=== PATIENT | male | born 1960 | race Caucasian/White ===

== ENCOUNTER 2023-03-28 12:25 | Day surgery (SDC) | payer OTHER ==
[~2023-03-28] VITALS: Ht 182.9 cm; Wt 124.0 kg
[~2023-03-28 12:25] MED LIST: ALLOPURINOL100 MG PO; CRESTOR10 MG PO
[2023-03-28 12:48] VITALS: BP 139/63
--- NOTE | 2023-03-28 14:23 | NUR ---
03/28/23 1423 Rufina Thompson 1420-PATIENT ARRIVED TO PACU ON 3L NC RR EVEN PLACED ON 2L. PATIENT LAYING LEFT LATERAL AWAKE REMAINS VERY DROWSY. ABDOMEN SOFT ENCOURAGED TO PASS GAS. IVF INFUSING. PATIENT DOZES TO SLEEP.
[2023-03-28 15:11] VITALS: BP 128/79
--- NOTE | 2023-03-30 11:21 | OR ---
[facility] [address], [place] [address] Signed DATE OF OPERATION: 03/28/2023 SURGEON: Corine Guerrero MD PREOPERATIVE DIAGNOSES: 1. Dysphagia without associated reflux symptoms. 2. Colon screening. POSTOPERATIVE DIAGNOSES: 1. 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 2. Large polyp (2 cm) mid rectum and smaller flat sessile polyp, of rectum. PROCEDURES: 1. Esophagogastroduodenoscopy with biopsy. 2. Total colonoscopy to cecum with hot snare polypectomy x1 and hot morcellation polypectomy x1. ANESTHESIA: Intravenous sedation; fentanyl 200 mcg and Versed 10 mg, total. INDICATION: This 62-year-old white man is a patient of Dr. Marc Forrester. He is referred for screening colonoscopy as well as for issues related to dysphagia. He has no actual heartburn complaints. His mother is well known to me from the past, who has had rectal prolapse problems and other issues. He has no known family history of colon cancer. He is admitted to undergo upper endoscopy and screening colonoscopy. He understands the risk of bleeding, infection, and perforation. FINDINGS: Upper endoscopy demonstrated no evidence of De Leon epithelium or actual stricture, though he did have a corrugated (feline) mid esophagus suggestive though not diagnostic of eosinophilic esophagitis. There is a small hiatal hernia. The stomach and duodenum showed mild inflammation as well. On colonoscopy, he had a well prepped colon. Complete colonoscopy was undertaken of the cecum. There was a relatively large rectal polyp at least 2 cm in size, which was excised with hot snare polypectomy technique and another smaller nearby polyp excised with hot morcellation technique. DESCRIPTION OF PROCEDURE: Electronically Signed By: CORINE GUERRERO MD 03/30/23 1121 PATIENT NAME: VARUN OLEARY OPERATIVE REPORT DATE OF : 62 REPORT #: [id number] PHYSICIAN: CORINE GUERRERO MD PCP: MARC FORRESTER MD REPORT IS CONFIDENTIAL AND NOT TO BE RELEASED WITHOUT AUTHORIZATION [facility] [address], [place] [address] Signed The patient was brought to the endoscopy suite and placed in the lateral decubitus position after undergoing topical lidocaine hypopharyngeal anesthesia. A bite block was placed. An Olympus video upper endoscope was passed into the hypopharynx after satisfactory intravenous sedation was induced to a point of slurred speech and nystagmus. The scope was advanced to the esophagus, throughout its length it initially appeared normal. The distal esophagus had no stricture, neoplasm, or De Leon's epithelium. Scope was advanced to the stomach, which was insufflated with air. Rugal folds were normal. The antrum had mild inflammatory change. Pylorus was normal. Scope was passed through into the duodenum, which had mild inflammatory change of the bulbar portion. Biopsies were taken of the 2nd portion and bulbar portion. The scope was withdrawn to the stomach and biopsies taken for both CONNER and pathologic testing. Retroflexed views undertaken showing a somewhat poor flap valve, but no sign of large hiatal hernia. Scope was withdrawn to the distal esophagus, which was normal. Biopsies were obtained nevertheless given his underlying symptoms. Further withdrawal to the midesophagus showed findings highly suggestive of eosinophilic esophagitis with a corrugated appearance consistent with feline esophagus. There was also a small flat mucosal polypoid lesion which was additionally biopsied. Biopsies were taken of the mid esophagus as well. The scope was withdrawn and plans made for colonoscopy. Additional sedation was given. Digital rectal examination was undertaken showing a symmetric and normal for age sized prostate. The Olympus video colonoscope was passed in the rectum and manipulated throughout the colon ultimately intubating the cecum itself. The ileocecal valve and appendiceal orifice were normal. Scope was withdrawn from that point. Examination showed no sign of problem until the rectum where in the mid to lower portion a rather large pedunculated polyp was noted. It measures at least 2 cm. Using hot snare polypectomy technique, it was excised completely without bleeding or other problem and was passed for permanent pathology. An additional small polyp was noted near by which was excised with hot morcellation technique. The scope was removed and the patient was taken to the recovery room in good condition. CONCLUDING DIAGNOSES: 1. Polyps x2. 2. Possible eosinophilic esophagitis. PLAN: We will initiate Prilosec 20 mg p.o. daily. If biopsies confirmed eosinophilic esophagitis, then we will add fluticasone two puffs spray b.i.d. three weeks with one week drug holiday. He will return to see me in approximately six weeks, sooner if there are problems. Electronically Signed By: CORINE GUERRERO MD 03/30/23 1121 PATIENT NAME: VARUN OLEARY OPERATIVE REPORT DATE OF : 62 REPORT #: [id number] PHYSICIAN: CORINE GUERRERO MD PCP: MARC FORRESTER MD REPORT IS CONFIDENTIAL AND NOT TO BE RELEASED WITHOUT AUTHORIZATION [address] [address] Signed Corine Guerrero MD JM/MODL /[id number] cc: Marc Forrester MD Copies: MARC FORRESTER DMD ~ Electronically Signed By: CORINE GUERRERO MD 03/30/23 1121 PATIENT NAME: VARUN OLEARY OPERATIVE REPORT DATE OF : 62 REPORT #: [id number] PHYSICIAN: CORINE GUERRERO MD PCP: MARC FORRESTER MD REPORT IS CONFIDENTIAL AND NOT TO BE RELEASED WITHOUT AUTHORIZATION
--- NOTE | 2023-04-03 13:04 | PATH ---
[facility] [address] [facility] [place], [place] [address] Signed SPECIMEN(S): A DUODENAL BIOPSY SPECIMEN(S): B DUODENAL BULB BIOPSY SPECIMEN(S): C ANTRUM/PYLORUS BIOPSY SPECIMEN(S): D DISTAL LOWER ESOPHAGEAL BIOPSY SPECIMEN(S): E MID ESOPHAGEAL POLYP SPECIMEN(S): F MID ESOPHAGEAL BIOPSY SPECIMEN(S): G RECTAL POLYP SPECIMEN(S): H ADDITIONAL RECTAL POLYP SPECIMEN SOURCE: A. DUODENAL BIOPSY B. DUODENAL BULB BIOPSY C. ANTRUM/PYLORUS BIOPSY D. DISTAL LOWER ESOPHAGEAL BIOPSY E. MID ESOPHAGEAL POLYP F. MID ESOPHAGEAL BIOPSY G. RECTAL POLYP H. ADDITIONAL RECTAL POLYP CLINICAL HISTORY: History of dysphagia; colon screening. Postop: Possible eosinophilic esophagitis. FINAL PATHOLOGIC DIAGNOSIS: A. Duodenal biopsy: - Benign duodenal mucosa, negative for specific diagnostic abnormality. B. Duodenal bulb biopsy: - Benign duodenal mucosa with focal epithelial erosion. - Negative for increased epithelial lymphocytes or other specific abnormality. C. Antrum / pylorus biopsy: - Benign gastric-type mucosa with focal slight chronic inflammation. - Negative for evidence of Helicobacter organisms on routine HE-stained sections. D. Distal lower esophageal biopsy: - Benign esophageal mucosa with increased epithelial eosinophils (up to approximately 22 per HPF). - Negative for gastric glandular mucosa. - See comment. E. Mid esophageal polyp: - Polypoid squamous epithelium with reactive features and increased epithelial eosinophils (up to approximately 30 per HPF) PATIENT NAME: VARUN OLEARY PATHOLOGY DATE OF : 62 REPORT #: [id number] PHYSICIAN: [facility] PCP: MARC FORRESTER MD REPORT IS CONFIDENTIAL AND NOT TO BE RELEASED WITHOUT AUTHORIZATION [facility] [address] [place], [place] [address] Signed - See comment. F. Mid esophageal biopsy: - Benign esophageal epithelium with increased epithelial eosinophils (measuring up to approximately 20 per HPF). - See comment. G. Rectal polyp: - Tubulovillous adenoma with a small superficial focus approaching High Grade Dysplasia. H. Additional rectal polyp: - Benign colonic mucosa, negative for adenoma or dysplasia. COMMENT: The increased epithelial eosinophils cells at the gastroesophageal junction can be seen with eosinophilic esophagitis and reflux associated changes. Clinical correlation requested. The increased epithelial eosinophils (specimens E and F) are consistent with eosinophilic esophagitis in the appropriate clinical context. Clinical correlation is requested. JVR:bhavna:C2NR MICROSCOPIC EXAMINATION: Histologic sections of all submitted blocks are examined by light microscopy. These findings, together with the gross examination, support the pathologic diagnosis. GROSS DESCRIPTION: A. The specimen, labeled and designated "Miriam, Jayme," and designated on the requisition "duodenum biopsy," is received in formalin and consists of two peacock soft tissue fragments that measure 0.4 and 0.6 cm in greatest dimension. The specimen is entirely submitted in (A1). B. The specimen, labeled and designated "Miriam, T," and designated on the requisition "duodenum bulb biopsy," is received in formalin and consists of two peacock soft tissue fragments that measure 0.3 and 0.4 cm in greatest dimension. The specimen is entirely submitted in (B1). C. The specimen, labeled and designated "Miriam, T," and designated on the requisition "antrum/pylorus biopsy," is received in formalin and consists of four peacock soft tissue fragments that measure 0.3 to 0.7 cm in greatest dimension. The specimen is entirely submitted in (C1). D. The specimen, labeled and designated "Miriam Jayme," and designated on the requisition "lower esophagus distal biopsy," is received in formalin and PATIENT NAME: VARUN OLEARY PATHOLOGY DATE OF : 62 REPORT #: [id number] PHYSICIAN: ALBARO BUTLER PCP: MARC FORRESTER MD REPORT IS CONFIDENTIAL AND NOT TO BE RELEASED WITHOUT AUTHORIZATION [facility] [address] [place], [place] [address] Signed consists of four white-peacock soft tissue fragments that measure 0.2 to 0.8 cm in greatest dimension. The specimen is entirely submitted in (D1). E. The specimen, labeled and designated "Jayme Oleary," and designated on the requisition "middle esophagus polyp," is received in formalin and consists of four white-peacock soft tissue fragments that measure 0.1 to 0.4 cm in greatest dimension. The specimen is entirely submitted in (E1). F. The specimen, labeled and designated "Jayme Oleary," and designated on the requisition "middle esophagus biopsy," is received in formalin and consists of two white-peacock soft tissue fragments that measure 0.3 and 0.6 cm in greatest dimension. The specimen is entirely submitted in (F1). G. The specimen, labeled and designated "Miriam, T," and designated on the requisition "rectum polyp," is received in formalin and consists of one peacock soft tissue fragment that is 1.4 cm in greatest dimension. The specimen is inked, sectioned, and entirely submitted in (G1-G2). H. The specimen, labeled and designated "Miriam, T," and designated on the requisition "additional rectal polyp," is received in formalin and consists of three peacock soft tissue fragments that measure 0.1 to 0.4 cm in greatest dimension. The specimen is entirely submitted in (H1). FB (under the direct supervision of a pathologist) The Gross Description was prepared using a voice recognition system. The report was reviewed for accuracy; however, sound-alike word errors, addition and/or deletions may occur. If there is any question about this report, please contact Client Services. PERFORMING LABORATORY: The technical component was performed by [facility], [address] [place] [address] (CLIA# [id number]). Professional interpretation was performed by [facility] [address] [address] (CLIA#: [id number]). Diagnostician: Garland Medina MD Pathologist Electronically Signed 04/03/2023 Copies: PATIENT NAME: VARUN OLEARY PATHOLOGY DATE OF : 62 REPORT #: [id number] PHYSICIAN: ALBARO BUTLER PCP: MARC FORRESTER MD REPORT IS CONFIDENTIAL AND NOT TO BE RELEASED WITHOUT AUTHORIZATION [facility] [address] [place] [id number] Signed ~ PATIENT NAME: VARUN OLEARY PATHOLOGY DATE OF : 62 REPORT #: [id number] PHYSICIAN: [facility] PCP: MARC FORRESTER MD REPORT IS CONFIDENTIAL AND NOT TO BE RELEASED WITHOUT AUTHORIZATION
== END 2023-03-28 15:20 | disposition home or self-care (01) ==
LOC: DS 12:25 → OPS 12:25 → DS 14:00 → OPS 14:00
PROVIDERS: ATTEND Surgery
DX: Z12.11 Encounter for screening for malignant neoplasm of colon (principal); D12.8 Benign neoplasm of rectum; K62.1 Rectal polyp; R13.19 Other dysphagia; K26.9 Duodenal ulcer, unspecified as acute or chronic, without hemorrhage or perforation; K29.50 Unspecified chronic gastritis without bleeding; K44.9 Diaphragmatic hernia without obstruction or gangrene; K22.81 Esophageal polyp; E66.9 Obesity, unspecified; Z68.36 Body mass index [BMI] 36.0-36.9, adult; Z79.899 Other long term (current) drug therapy
CPT/HCPCS: 99153; G0500; J0690; J2250; J3010; J7121